=== PATIENT | male | born 1960 | race Caucasian/White ===

== ENCOUNTER 2021-03-06 06:32 | Emergency (ER) | payer OTHER ==
[~2021-03-06 06:32] MED LIST: ASPIRIN81 MG PO; BACTROBAN NASAL1 G1 TP; BENZTROPINE MESY1 MG PO; CELEXA20 MG PO; CLARITIN10 MG PO; GLUCOPHAGE1000 MG PO; GLUCOTROL XL 22.5 MG PO; IBUPROFEN800 MG PO; KEPPRA500 MG PO; LIORESAL TAB 1010 MG PO; NITROGLYCERIN0.4 MG SL; PRINIVIL5 MG PO; PROTONIX 20 MG20 MG PO; THORAZINE 25 MG25 MG PO; TRAZODONE HCL100 MG PO
[2021-03-06] MEDS ORDERED: HYDROCODON-ACE1 EAC4 PO (08:09)
== END 2021-03-06 08:46 | disposition home or self-care (01) ==
LOC: ER1 06:32
DX: S22.32XA Fracture of one rib, left side, initial encounter for closed fracture (principal); S62.511A Displaced fracture of proximal phalanx of right thumb, initial encounter for closed fracture; E11.9 Type 2 diabetes mellitus without complications; I10 Essential (primary) hypertension; K21.9 Gastro-esophageal reflux disease without esophagitis; W19.XXXA Unspecified fall, initial encounter; Y92.009 Unspecified place in unspecified non-institutional (private) residence as the place of occurrence of the external cause
CPT/HCPCS: 29125; 71111; 73140; 99283

== ENCOUNTER → 2021-12-31 | Outpatient (CLI) | payer OTHER ==
[~2021-12-31] MED LIST changes: +HYDROCODON-ACE1 EAC4 PO
== END ==
LOC: HEART 5 12-29 09:00 → EXRD 12-29 11:15 → HEART 5 12-29 14:00 → EXRD 08:00
DX: I73.9 Peripheral vascular disease, unspecified (principal)
CPT/HCPCS: 93922; 93925